=== PATIENT | male | born 1950 | race Caucasian/White ===

== ENCOUNTER 2020-05-07 05:01 | Observation (INO) ==
--- NOTE | 2020-04-10 11:28 | PAT Medication Instructions ---
Medication Instructions Date of Service April 10, 2020 Home Medications allopurinol 100 mg PO BID atorvastatin 40 mg PO QAM carvedilol 25 mg PO BID celecoxib 200 mg PO QAM losartan 50 mg PO QAM pantoprazole 40 mg PO QAM ASK your surgeon for instructions celecoxib 200 mg PO QAM DO NOT take the morning of surgery losartan 50 mg PO QAM Take morning of surgery With a small sip of water, OTHERWISE NOTHING TO EAT OR DRINK AFTER MIDNIGHT: pantoprazole 40 mg PO QAM carvedilol 25 mg PO BID atorvastatin 40 mg PO QAM allopurinol 100 mg PO BID Take evening before surgery allopurinol 100 mg PO BID carvedilol 25 mg PO BID Other Notes If you have any questions please call us at [phone] or [phone] or [phone] or [phone]
--- NOTE | 2020-04-11 08:25 | Anesthesiology Consultation ---
Date of Service April 11, 2020 Assessment & Plan (1) Encounter for pre-operative examination: COVID Status: As of 04/11 assessment, patient denies travel to endemic area, known exposure/sick contacts, or symptoms of COVID19. Patient instructed that they and their household members must follow strict social distancing guidelines, wear a mask in public and avoid travel for 14 days prior to surgery. Preoperative COVID19 testing to be completed prior to surgery per surgeon's arrangements (pt reports 05/02). Patient made aware to self-isolate as much as possible between COVID testing and surgery. S/P L TKA @ [facility] 07/16/15 = SAB x 3 attempts at midline L3-L4, and L4-L5 x 1 paramedian. (h/o spinal fusion) Chart Review Chart Review: Acceptable Risk for Surgery (pending surgeon ordered PCP clearance 04/15) and Patient seen in Pre Admission Testing Teaching & Discussion Instructed NPO after midnight before surgery, except medications with 15 cc of water. Medication instructions provided according to the PAT guidelines. History Surgery Operation Date: 05/07/20 10:20 Proposed Procedures p Right Total Knee Arthroplasty - Tavo Grayson MD Height/Weight Height: 5 ft 10.5 in Weight: 81.4 kg Allergies Allergy/AdvReac Type Severity Reaction Status Date / Time No Known Allergies Allergy Mild Unverified 04/07/20 10:35 Medications Home Medications Medication Instructions Recorded Confirmed Last Taken allopurinol 100 mg PO BID 04/07/20 04/07/20 Unknown atorvastatin 40 mg PO QAM 04/07/20 04/07/20 Unknown carvedilol 25 mg PO BID 04/07/20 04/07/20 Unknown celecoxib 200 mg PO QAM 04/07/20 04/07/20 Unknown losartan 50 mg PO QAM 04/07/20 04/07/20 Unknown pantoprazole 40 mg PO QAM 04/07/20 04/07/20 Unknown Past Medical History Medical History (Updated 04/14/20 @ 09:55 by Philippe Rich) Anemia 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 No medication was ever initiated, sinus mario at PAT Hyperlipidemia Hypertension Osteoarthritis Peptic ulcer disease 2017> RESOLVED Exercise / Class Metabolic Activity II 4-5 Yardwork/Stairs/Walk up hill Past Surgical History Surgical History Fusion of spine LUMBAR History of colonoscopy History of tooth extraction History of total knee replacement LEFT History of total shoulder replacement RIGHT Past Anesthesia History No Hx of Anesthesia Complications and No Family Hx of Anesthesia Complications History of PONV No Hx of PONV and No Hx of Motion Sickness Social History Smoking Status: Former smoker tobacco type: smokeless tobacco Do You Dip or Chew Tobacco: Yes (1 CAN PER 4 DAYS, ADVISED NONE AM DOS) Smoking End Date: 25 YRS AGO Hx Alcohol Use: Yes Alcohol type: beer alcohol intake frequency: 3 or more drinks per day Alcohol Intake Frequency Comment: 3-4 BEERS PER DAY Hx Substance Use: No substance use type: does not use Review of Systems Pt denies any recent chest pain, shortness of breath, palpitations, cough, fever, URI, or uncontrolled acid reflux. Physical Exam Vital Signs BP: 156/90 P: 63bpm SPO2: 97% RA T: 98.1 F R: 16 ENMT Mouth: + dental bridge (upper front) and + chipped teeth (one upper incisor); no loose teeth Thyromental Distance: < 3.5 Finger Breadths (3) Mallampati Class: III Neck normal visual inspection and + facial hair (very short mc and mustache); neck extension not limited Respiratory normal respiratory effort Auscultation: lungs clear to auscultation bilaterally Cardiovascular Rate/Rhythm: regular rhythm and + bradycardic Heart Sounds: no murmur Vessels: no carotid bruit Testing Laboratory Results 04/11/20 08:37 04/11/20 08:37 PT 11.4 Seconds (9.0-12.0) 04/11/20 08:37 INR 1.1 (0.9-1.1) 04/11/20 08:37 APTT 27.7 Seconds (21.0-31.0) 04/11/20 08:37 Hemoglobin A1c 5.3 % (4.5-5.6) 04/11/20 08:37 Urine Color Yellow 04/11/20 08:37 Urine Appearance Clear (Clear) 04/11/20 08:37 Urine pH 5.5 (4.5-7.5) 04/11/20 08:37 Ur Specific [place] 1.013 (1.000-1.030) 04/11/20 08:37 Urine Protein Negative (Negative) 04/11/20 08:37 Urine Glucose (UA) Negative (Negative) 04/11/20 08:37 Urine Ketones Negative (Negative) 04/11/20 08:37 Urine Nitrite Negative (Negative) 04/11/20 08:37 Ur Leukocyte Esterase Negative (Negative) 04/11/20 08:37 Blood Type O Negative 04/11/20 08:37 Antibody Screen NEGATIVE 04/11/20 08:37 Electrocardiogram Date: 04/11/20 Findings: + SB @ (56bpm) Chest X-Ray Date: 04/11/20 Findings: + NAD
--- NOTE | 2020-04-11 09:13 | XRay Report ---
TWO VIEW CHEST CLINICAL HISTORY: Preoperative examination. FINDINGS: PA and lateral chest radiographs are compared to study dated 01/03/2015. The cardiomediastina l silhouette is unremarkable. There is bibasilar scarring/atelectasis. No airspace consolidation or p leural effusion is identified. There is no pneumothorax. The skeletal structures are osteopenic. The bony thorax appears intact. A right shoulder arthroplasty is in place. Fusion hardware is noted at th e thoracolumbar junction. Compression deformities are noted in the lower spine. IMPRESSION: No active disease in the chest. ACT 112: Negative or not required by law. Electronically signed by: Hermilo Keene M.D. 04/11/2020 9:12 AM
[2020-04-11 11:50] LABS: Basophils # (auto) 0.04 K/uL (0-0.2); Basophils % (auto) 0.7 %; Eosinophils # (auto) 0.59 K/uL (0-0.5); Eosinophils % (auto) 10.5 %; Hematocrit (blood only) 47.2 % (42-52); Hemoglobin 15.8 g/dL (14.0-18.0); Immature Granulocytes # (auto) 0.02 K/uL (0.00-0.02); Immature Granulocytes % (auto) 0.4 %; Lymphocytes # (auto) 1.17 K/uL (1.2-3.4); Lymphocytes % (auto) 20.9 %; Mean Corpuscular Hemoglobin 30.5 pg (25-34); Mean Corpuscular Hgb Conc 33.5 g/dL (32-36); Mean Corpuscular Volume 91.1 fL (80-100); Mean Platelet Volume 11.6 fL (7.4-10.4); Monocytes # (auto) 0.81 K/uL (0.11-0.59); Monocytes % (auto) 14.4 %; Neutrophils # (auto) 2.98 K/uL (1.4-6.5); Neutrophils % (auto) 53.1 %; Platelet Count 176 K/uL (130-400); RDW Coefficient of Variation 13.8 % (11.5-14.5); RDW Standard Deviation 45.8 fL (36.4-46.3); Red Blood Count 5.18 M/uL (4.7-6.1); White Blood Count 5.61 K/uL (4.8-10.8)
[2020-04-11 11:59] LABS: Albumin Level 3.6 gm/dl (3.4-5.0); BUN Creatinine Ratio 22.3 (10-20); Calcium 8.9 mg/dl (8.5-10.1); Creatinine Clr Calc Pharmacy 75.3 ml/min; Est GFR (African American) 94.7; Est GFR (Non-African American) 81.7; Potassium 4.5 mmol/L (3.5-5.1)
[2020-04-11 12:04] LABS: INR 1.1 (0.9-1.1); Partial Thromboplastin Time 27.7 Seconds (21.0-31.0); Prothrombin Time 11.4 Seconds (9.0-12.0)
[2020-04-11 12:25] LABS: Estimated Average Glucose 105 mg/dl; Hemoglobin A1C 5.3 % (4.5-5.6)
--- NOTE | 2020-04-11 13:29 | Electrocardiogram Report ---
Test Reason : Blood Pressure : / mmHG Vent. Rate : 056 BPM Atrial Rate : 056 BPM P-R Int : 166 ms QRS Dur : 092 ms QT Int : 424 ms P-R-T Axes : 051 028 038 degrees QTc Int : 409 ms Sinus bradycardia Otherwise normal ECG When compared with ECG of 12-JUL-2016 06:18, QT has shortened Confirmed by Antoine Blood ([id number]) on 04/11/2020 1:28:54 PM Referred By: Tavo Grayson Confirmed By:Chandler Blood
[2020-04-11 14:28] LABS: Appearance Urine Clear (Clear); Bilirubin Urine Negative (Negative); Blood Urine Negative (Negative); Color Urine Yellow; Glucose Urine UA Negative (Negative); Ketones Urine Negative (Negative); Leukocyte Esterase Urine Negative (Negative); Nitrite Urine Negative (Negative); Protein Urine Negative (Negative); Specific Gravity Urine 1.013 (1.000-1.030); Urobilinogen Urine Negative (Negative); pH Urine 5.5 (4.5-7.5)
--- NOTE | 2020-05-06 22:43 | History and Physical Report ---
DATE OF ADMISSION: 05/07/2020 HISTORY OF PRESENT ILLNESS: This is a 70-year-old male patient of Dr. Grayson'usman complaining of chronic right knee pain, longstanding, now progressively getting worse. The patient has failed conservative treatment including intra-articular injections. The patient has increased pain with weightbearing activities and his pain does interfere with his activities of daily living. The patient has been diagnosed with end-stage osteoarthritis per clinical and radiographic exams and wishes to proceed with a right total knee arthroplasty. PAST MEDICAL HISTORY: Hypertension, hypercholesterolemia, osteoarthritis, spinal stenosis. SOCIAL HISTORY: Nonsmoker, occasional drinker. SURGICAL HISTORY: Back surgery, shoulder surgery x2. FAMILY HISTORY: Noncontributory. REVIEW OF SYSTEMS: Chronic right knee pain and instability. Otherwise, denies any shortness of breath, chest pain, nausea, vomiting or any other joint complaints. MEDICATIONS: 1. Celebrex 200 mg daily. 2. Zoster recombinant adjuvant 50 mcg every 3-4 months. 3. Allopurinol 100 mg twice daily. 4. Atorvastatin 40 mg daily. 5. Carvedilol 25 mg twice daily. 6. Losartan 50 mg daily. 7. Pantoprazole 40 mg daily. ALLERGIES: No known drug allergies. PHYSICAL EXAMINATION: GENERAL: Well-developed, well-nourished 70-year-old male, in no acute distress. He is alert and oriented x3 and pleasant. HEENT: Normocephalic, atraumatic. Extraocular motions are intact. Pupils are equal and reactive to light. HEART: Regular rate and rhythm. No murmurs. LUNGS: Clear. ABDOMEN: Soft, nontender, bowel sounds present. EXTREMITIES: Right lower extremity limited range of motion of 0-130, valgus deformity, lateral joint line tenderness. Positive effusion, positive crepitation. 4/5 strength with pain. Neurologically and neurovascularly, he is intact in the right lower extremity. DIAGNOSES: Right knee end-stage osteoarthritis, hypertension, hypercholesterolemia, osteoarthritis, spinal stenosis. PLAN: The patient was advised of his diagnosis. Indications, risks, benefits, postop course have all been reviewed. The patient wished to proceed with a right total knee arthroplasty. Necessary consent forms, preoperative testing and clearances will be obtained.
[2020-05-07] MEDS ORDERED: FAMOTIDINE 20 MG TAB PO SCH (06:00)
[2020-05-07] MEDS ORDERED: CeleBREX 200 MG CAP PO SCH (06:00)
[2020-05-07] MEDS ORDERED: ROPIVACAINE 0.5% HCL/PF 150 MG, BUPIVACAINE 0.5% MPF 30 ML, EPINEPHrine 30MG/30ML (OR U... INSTIL SCH (06:00)
[2020-05-07] MEDS ORDERED: ACETAMINOPHEN 500 MG TAB PO SCH ×2 (06:00→14:00)
[2020-05-07] MEDS ORDERED: TRANEXAMIC ACID 1,000 MG **IV Intra-op IV SCH (06:00)
[2020-05-07] MEDS ORDERED: LR 500ML BOLUS, THEN 15ML/HR IV SCH (06:00)
[2020-05-07] MEDS ORDERED: METOCLOPRAMIDE HCL 10 MG TABLET PO SCH (06:00)
[2020-05-07] MEDS ORDERED: TRANEXAMIC ACID 1,000 MG **IV Pre-op IV SCH (06:00)
[2020-05-07] MEDS ORDERED: CEFAZOLIN 2000MG 2,000 MG/15 ML SYR IV SCH (06:00)
[2020-05-07] MEDS ORDERED: GABAPENTIN 300 MG CAP PO SCH (06:00)
[2020-05-07] MEDS ORDERED: dexAMETHasone 4 MG TAB PO SCH (06:00)
[2020-05-07] MEDS ORDERED: EPINEPHrine INJ 1 MG/ML AMP ONE (06:23)
[2020-05-07] MEDS ORDERED: ROPIVACAINE 0.5% 5 MG/ML 30 ML VIAL ONE (06:23)
[2020-05-07] MEDS ORDERED: BUPIVACAINE 0.5 % 5 MG/1 ML PF 10ML VIAL ONE (06:23)
[2020-05-07] MEDS ORDERED: MIDAZOLAM HCL 1 MG/ML 2ML VIAL ONE ×2 (06:35)
[2020-05-07] MEDS ORDERED: LIDOCAINE HCL 2% 2 ML VIAL/AMP(20MG/ML) INFIL ONE (06:35)
[2020-05-07] MEDS ORDERED: PROPOFOL IV EMULSION 10 MG/ML 20 ML VIAL IV ONE ×4 (06:35→08:41)
--- NOTE | 2020-05-07 06:56 | History & Physical Bridge Note ---
Date of Service May 07, 2020 History & Physical Bridge Note I have examined the patient, reviewed the History & Physical and in the interval since the performance of the History & Physical I have noted the following changes of clinical significance: no changes noted
[2020-05-07] MEDS ORDERED: BACITRACIN INJ 50,000 UNIT VIAL ONE (07:13)
[2020-05-07] MEDS ORDERED: ORTHO JOINT ANESTHETIC ONE (07:13)
[2020-05-07] MEDS ORDERED: ATROPINE SULFATE 0.1 MG/ML 10ML SYR IV PRN (07:41)
[2020-05-07] MEDS ORDERED: ePHEDrine sulfate 50 MG/ML AMP IV PRN (07:41)
[2020-05-07] MEDS ORDERED: ePHEDrine sulfate 50 MG/ML AMP ONE (07:49)
[2020-05-07] MEDS ORDERED: PHENYLEPHRINE HCL 10 MG/ML VIAL ONE (07:49)
[2020-05-07] MEDS ORDERED: GLYCOPYRROLATE 0.2 MG/ML VIAL ONE (07:58)
--- NOTE | 2020-05-07 09:40 | Post Operative Brief Note ---
Immediate Post Op Note v1 Date of Surgery May 07, 2020 Pre & Post Diagnosis Operation Date: 05/07/20 07:15 Pre-Op Diagnosis: Unilateral Primary Osteoarthritis, Right Knee Post-Op Diagnosis: Unilateral Primary Osteoarthritis, Right Knee I identified the patient and participated in the time-out.: Yes Procedure Operation Date: 05/07/20 07:15 Actual Procedures p Right Total Knee Arthroplasty(Right) - Tavo Grayson MD Surgeon Tavo Grayson MD Building Maintenance Engineer EDMUNDO Portillo Estimated Blood Loss 5 Findings Consistent with Post-Op Diagnosis Specimens Bone cuts Drains Hemovac Drain (dual trocar) Anesthesia Type MAC Spinal Regional Complications none Disposition Accompanied Patient To Recovery: No Disposition: Recovery Room Overlapping Procedure I was immediately available: during the entire case.
--- NOTE | 2020-05-07 10:13 | Operative Report ---
Post Operative Report Pre & Post Diagnosis Operation Date: 05/07/20 07:15 Pre-Op Diagnosis: Unilateral Primary Osteoarthritis, Right Knee Post-Op Diagnosis: Unilateral Primary Osteoarthritis, Right Knee I identified the patient and participated in the time-out.: Yes Procedure Operation Date: 05/07/20 07:15 Actual Procedures p Right Total Knee Arthroplasty(Right), lateral release- Tavo Grayson MD Surgeon Tavo Grayson MD Audio Visual Secretary EDMUNDO Portillo Estimated Blood Loss 5 Findings Consistent with Post-Op Diagnosis Specimens Bone cuts Drains 2 Hemovac Anesthesia Type MAC Spinal Regional Complications none Disposition Accompanied Patient To Recovery: No Disposition: Recovery Room Indications 68-year-old male with severe bilateral knee osteoarthritis. Patient has successful left knee replacement. Right knee is [id number] lateral compartment with significant bone loss and valgus knee with chronic flexion contracture. Description of Procedure Patient taken to the operating room the size under spinal MAC regional anesthesia. Patient was placed supine on the operating table. A pneumatic t ourniquet was placed about the right upper thigh. The right lower extremity was prepped and draped in sterile fashion. Knee exam demonstrated large knee effusion flexion contracture of 20 degrees flexion to 120 degrees instability with varus valgus stress due to significant bone loss lateral compartment. The leg was elevated exsanguinated with an Esmarch bandage and pneumatic tourniquet was raised to 300 millimeters of mercury. Skin incised sharply in longitudinal fashion. Subcutaneous flaps elevated. Incision was made through the medial retinaculum extending up in the mid third of the quadriceps tendon and down to the medial tibial tubercle. Intra-articular findings demonstrated tricompartmental osteoarthritis [id number] medial and lateral compartments and advanced patellofemoral osteoarthritis valgus knee notch stenosis with bone completely covering the notch chronic ACL tear chronic lateral meniscus tear with subluxation laterally and chronic synovitis with large effusion that was evacuated. There was a hypoplastic lateral femoral condyle and significant bone loss of the posterior lateral tibia. There was chronic thickened synovitis. The [employer] triBlueInGreen, [employer]on total knee arthroplasty system was used. To expose the knee the infrapatellar fat pad was resected. A curved osteotome was used to remove the bone spurs in the notch to expose the PCL. The meniscal remnants and posterior cruciate ligaments were resected. A large loose body was excised from the anterior tibia. the anterior fat pad over the femur in the area of the anterior flange of the femoral component was resected. Lateral synovial bands release. Electrocautery synovectomy was performed removing all the thickened inflamed synovial tissue and suprapatellar pouch in the gutters. The femur was exposed. An intramedullary drill hole was made into the canal. A guide ally was placed. Distal femoral cutting guide was adjusted to resect a 6 degree valgus cut with 10 millimeters distal femur resected initially. I did take off additional +2 mm due to the flexion contracture. The knee was extended and a subperiosteal peel lateral release was performed around the patella. Patella width was measured and width was reproduced using a freehand cut technique and a 33 x 9 symmetrical patella component. The 3 drill holes were made and the excess lateral facet was beveled off to prevent any impingement. Attention was taken back to the femur which was exposed with retractors and the femoral sizing guide was pinned in position. The drill holes were placed in 3 of external rotation to match epicondylar axis. Femur sized for a 6 PS component. The 4-in-1 cutting block was placed and then the anterior posterior and chamfer cuts are made. The tibia was then subluxed. The external tibial cutting guide was just to make a perpendicular cut to the long axis of the tibia. Due to the marked bone loss I cannot cut below the level of most deficient posterior lateral tibia so we cut just above that level leaving a small dished out area of of eburnated bone that was curetted and drill holes were made into that area to place bone cement during fixation.. A lamina mysql database administrator was used and the flexion extension gaps were balanced. All posterior osteophytes removed. All meniscal remnants were resected. The tibia exposed and the trial tibial component size 6 was externally rotated in line with the tibial tubercle and pinned in position. The drills and punch for stem were used. The notch cutting device was centered appropriately and the femoral notch cut was made. The femoral trial was inserted. Trial tibial inserts were placed and size 6 x 11 mm TS gave balanced ligaments through flexion and extension. Patella tracking was assessed. The patella tracked laterally so I did a lateral release leaving the synovium intact and the patella tracked centrally.. The trial components were then removed and the orthomix anesthetic cocktail was injected per protocol. The knee was then copiously irrigated with pulsatile lavage antibiotic solution. Final components were then cemented with Simplex cement. Final components were [place] triathlon 6 right posterior stabilized femoral component with fixation pegs, 6 universal baseplate with a 12 x 100 mm cemented stem, 6 bilaminar TS polyethylene insert and a S 33 x 9 patella. While the cement cured the Betadine soak was used per p rotocol. After cement cured further pulsatile lavage irrigation performed and 2 Hemovac drains were brought out laterally. The quadriceps tendon and medial retinaculum were closed with figure of 8 #1 Vicryl sutures. The knee was taken through full range of motion and the repair was secure. The knee is able to be extended to full extension with some passive extension just shy of full extension in the resting position and had flexion 130 degrees. The subcutaneous tissues were closed with 2-0 Vicryl sutures. Skin was closed with leatha. Sterile dressings were applied. Patient procedure well. Feng WYATT was my physician railway yard assistant who assisted in patient positioning prepping and draping,leg positioning ,soft tissue retraction and instrument management and participated in the closing and will participate in postoperative care of the patient. The patient tolerated the procedure well. I attest to the content of the Intraoperative Record and any orders documented therein. Any exceptions are noted below.
--- NOTE | 2020-05-07 10:28 | Anesthesiology Progress Note ---
Date of Service May 07, 2020 Anesthesia Post Procedure Vital Signs Vital Signs: Temp Pulse Pulse Resp BP Pulse Ox 05/07/20 10:15 36.5 C 69 14 106/64 94 05/07/20 10:05 72 16 96/72 L 89 L 05/07/20 09:55 76 17 106/73 91 05/07/20 09:47 36.2 C L 80 16 103/70 90 05/07/20 05:55 36.4 C L 70 18 101/68 94 Transfer of Care Handoff Completed per policy Notes Mental Status: alert / awake / arousable Patient Amnestic to Procedure: Yes Nausea / Vomiting: adequately controlled Pain: adequately controlled Airway Patency, RR, SpO2: stable & adequate BP & HR: stable & adequate Hydration State: stable & adequate Neuraxial Anesthesia: was administered and sensory block is resolving Anesthetic Complications: no major complications apparent
--- NOTE | 2020-05-07 10:52 | XRay Report ---
TWO VIEWS RIGHT KNEE CLINICAL HISTORY: Postoperative examination. FINDINGS: AP and crosstable lateral portable views of the right knee are obtained. A right knee arthr oplasty is in near anatomic alignment. There has been undersurface remodeling of the patella. No acut e fracture is seen. There are expected postoperative changes around the knee including skin clips, a surgical drain, soft tissue edema, and subcutaneous gas. IMPRESSION: Expected postoperative changes status post right knee arthroplasty. No acute fracture is seen. ACT 112: Negative or not required by law. Electronically signed by: Hermilo Keene M.D. 05/07/2020 10:51 AM
[2020-05-07] MEDS ORDERED: ONDANSETRON INJ 2 MG/ML 2 ML VIAL IV PRN (10:57)
[2020-05-07] MEDS ORDERED: OXYCODONE HCL IR 5 MG TAB (IMMEDIATE RELEASE) PO PRN (10:57)
[2020-05-07] MEDS ORDERED: MAGNESIUM HYDROXIDE SUSP 30 ML UDC PO PRN (10:57)
[2020-05-07] MEDS ORDERED: bisacodyL 10 MG SUPP PR PRN (10:57)
[2020-05-07] MEDS ORDERED: NALOXONE HCL 0.4 MG/1 ML VIAL/CARP IV PRN (10:57)
[2020-05-07] MEDS ORDERED: HYDROmorphone INJ 0.5 MG/0.5 ML SYR IV PRN (10:57)
[2020-05-07] MEDS: SODIUM CHLORIDE 0.9% 1000ML 1,000 ML IV SCH ×2 (11:11→21:13)
--- NOTE | 2020-05-07 11:33 | Consultation ---
Date of Consultation May 07, 2020 Assessment & Plan (1) Status post total right knee replacement: Post op day# 0 S/P Right TKA by Dr Grayson EBL#5ml -pain management per ortho -wound management per ortho -PT/OT as appropriate -DVT prophylaxis per ortho -incentive spirometry -monitor H&H for acute blood loss anemia; Pre-op Hgb: 15.8 (2) Hypertension: Stable Pt reports took carvedilol and losartan this morning -Continue carvedilol, losartan with holding parameters (3) Alcohol use: Denies h/o ETOH withdrawal or DT's -Monitor for ETOH withdrawal symptoms -Ativan prn (4) Hyperlipidemia: -Continue atorvastatin (5) Gout: -Continue allopurinol (6) GERD (gastroesophageal reflux disease): -Continue PPI DVT Prophylaxis -SCDs Disposition per primary service Follows with Dr Zhu for routine care Pt was seen and care coordinated with Dr Spencer. See addendum Thank you for this consultation. We will follow the patient with you during their hospital stay. You can reach a member of the [facility]ist Team 28/03 via pager @ [phone]. Supervising Physician Co-Signing Physician Notes I, Dr. Woo Spencer, have seen and examined the patient Sid Walker with physician assistant financial accountant and would like to comment that On Physical exam General: no acute distress HEENT: extraoccular movements intact Heart: regular heart rate Lungs: clear to auscultation bilaterally Abdomen: soft, nontender, positive bowel sounds Extremities: with wound vac on right knee Neuro: no focal neurological deficits Assessment and plan -This is a patient who had Right Total Knee Arthroplasty with lateral release by orthopedic service Dr. Grayson on 05/07/2020 and hospitalist medicine being asked for consultation for POST-OP Management -Patient to have IV fluids after the surgery and that order is active also post- operative antibiotics of cefazolin -Patient has history of hypertension and is on home medication of carvedilol 25 mg twice a day, and losartan 50 mg daily continue -continue home dose atorvastatin 40 mg daily -patient has pain medications as per orthopedics. Hospitalist edit orthopedics order of acetaminophen 1000 mg q8 hours as scheduled medication as 650 mg every 8 hours for no more than 3 days to minimize risks of liver toxicity -discussed with patient about home alcohol use. He denies history of alcohol withdrawal, He does not have alcohol withdrawal symptoms currently. He reports his last drink of alcohol was on 05/06/2020 -patient is on DVT prophylaxis as per orthopedics as aspirin 81 mg twice a day at this time -labs to be drawn on 05/08/2020 AM -agree with other assessment and plans as per physician assistant financial accountant -My colleague hospitalist Dr. Rucker will be following the patient starting on 05/08/2020 History of Present Illness Requesting Physician: Dr Grayson Reason for Consultation: Post op medical management Attending Physician: Tavo Grayson MD History of Present Illness Pt is 70 y/o M with PMH HTN, dyslipidemia, gout, tobacco use seen in medical consultation s/p right TKA today by Dr. Grayson. Post op pt still with extremity numbness. Denies any nausea, vomiting, chest pain, shortness of breath, headache, dizziness. Patient reports took all of his home medicines this morning except for Celebrex. Denies fever/chills, diaphoresis, neck pain, palpitations, cough, sore throat, abdominal pain, extremity edema, rashes, urinary symptoms. Allergies Allergy/AdvReac Type Severity Reaction Status Date / Time No Known Allergies Allergy Mild Unverified 04/07/20 10:35 Home Medications Home Medications Medication Instructions Recorded Confirmed Type allopurinol 100 mg PO BID 04/07/20 04/07/20 History atorvastatin 40 mg PO QAM 04/07/20 05/07/20 History carvedilol 25 mg PO BID 04/07/20 04/07/20 History celecoxib 200 mg PO QAM 04/07/20 05/07/20 History losartan 50 mg PO QAM 04/07/20 04/07/20 History pantoprazole 40 mg PO QAM 04/07/20 04/07/20 History Patient History Medical History (Updated 05/07/20 @ 11:33 by Teresa Kumar PA-C) Anemia 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 No medication was ever initiated, sinus mario at PAT Hyperlipidemia Hypertension Osteoarthritis Peptic ulcer disease 2016> RESOLVED Surgical History (Updated 05/07/20 @ 11:33 by Teresa Kumar PA-C) Fusion of spine LUMBAR History of colonoscopy History of tooth extraction History of total knee replacement LEFT History of total shoulder replacement RIGHT Social History (Updated 05/07/20 @ 12:32 by Teresa Kumar PA-C) Smoking Status: Former smoker Smoking End Date: 25 YRS AGO; Second Hand Exposure: No; Do You Dip or Chew Tobacco: Yes (1 CAN PER 4 DAYS, ADVISED NONE AM DOS); Tobacco Cessation Education Requested by Patient: No Hx Alcohol Use: Yes (4/day) Alcohol type: beer Hx Substance Use: No Preferred Language: Malay Communication Ability: Effective Plasterer Helper Required: No Beliefs That Will Affect Care: None marital status: Current Living Situation: Spouse Other Information That Helps Us Care for You: No Feels Safe at Home: Yes Safety Concerns: Feels Safe At This Time Review of Systems Review of Systems: All systems reviewed & are unremarkable except as noted in HPI & below Physical Exam Physical Exam: General: no distress, WDWN Head: normocephalic, atraumatic Eyes: conjunctiva non-injected, anicteric ENT: normal inspection external ears, nose, mucous membranes moist Neck: supple, trachea midline Lungs: clear, no respiratory distress, no wheezing/rhonchi/rales CV: RRR, no murmur, no pretibial edema Abd: normal BS, soft, non-tender Ext: Right knee and leg with surgical dressing and SABRA wrap in place. distal pulses palpable, pt with decreased sensation and no ROM legs yet (had spinal anesthesia) Neuro: A&O x 3, no focal deficits noted, normal affect Skin: warm, dry Results & Data ([facility]) Vital Signs (Past 12 Hours) Vital Signs Temp Pulse Pulse Resp BP BP Pulse Ox 05/07/20 11:07 75 16 117/85 93 05/07/20 10:45 36.4 C L 73 16 122/83 96 05/07/20 10:35 36.5 C 67 15 123/81 96 05/07/20 10:25 36.5 C 68 16 114/81 96 05/07/20 10:15 36.5 C 69 14 106/64 94 05/07/20 10:05 72 16 96/72 L 89 L 05/07/20 09:55 76 17 106/73 91 09/02/20 09:47 36.2 C L 80 16 103/70 90 05/07/20 05:55 36.4 C L 70 18 101/68 94
[2020-05-07] MEDS ORDERED: LORazepam 1 MG/2 ML VIAL IV PRN (11:35)
[2020-05-07] MEDS: ACETAMINOPHEN 325 MG TAB PO SCH ×2 (12:59→21:07)
[2020-05-07] MEDS: CEFAZOLIN 1000MG 1,000 MG/7.5 ML SYR IV SCH ×2 (14:20→22:01)
[2020-05-07] MEDS: DOCUSATE SODIUM 100 MG CAP PO SCH (21:08)
[2020-05-07] MEDS: CeleBREX 200 MG CAP PO SCH (21:08)
[2020-05-07] MEDS: allopurinoL 100 MG TAB PO SCH (21:09)
[2020-05-07] MEDS: ASPIRIN 81 MG ECTAB PO SCH (21:09)
[2020-05-07] MEDS: SENNA 8.6 MG TAB PO SCH (21:09)
[2020-05-07] MEDS: carvediloL 25 MG TAB PO SCH (21:10)
[2020-05-08] MEDS: ACETAMINOPHEN 325 MG TAB PO SCH ×3 (03:53→20:55)
[2020-05-08 06:18] LABS: Hematocrit (blood only) 36.4 % (42-52); Hemoglobin 11.8 g/dL (14.0-18.0); Mean Corpuscular Hemoglobin 29.9 pg (25-34); Mean Corpuscular Hgb Conc 32.4 g/dL (32-36); Mean Corpuscular Volume 92.2 fL (80-100); Mean Platelet Volume 11.1 fL (7.4-10.4); Platelet Count 181 K/uL (130-400); RDW Coefficient of Variation 13.7 % (11.5-14.5); RDW Standard Deviation 46.1 fL (36.4-46.3); Red Blood Count 3.95 M/uL (4.7-6.1); White Blood Count 14.04 K/uL (4.8-10.8)
[2020-05-08 06:51] LABS: BUN Creatinine Ratio 23.1 (10-20); Calcium 7.9 mg/dl (8.5-10.1); Creatinine Clr Calc Pharmacy 67.3 ml/min; Est GFR (African American) 82.7; Est GFR (Non-African American) 71.4; Magnesium 1.7 mg/dl (1.8-2.4); Potassium 3.9 mmol/L (3.5-5.1)
[2020-05-08 06:52] LABS: Phosphorus 3.1 mg/dl (2.5-4.9)
--- NOTE | 2020-05-08 08:20 | Orthopedic Progress Note ---
Date of Service May 08, 2020 Assessment & Plan (1) Osteoarthritis of right knee: Postop day 1 status post right total knee arthroplasty. PT/OT protocols. Weightbearing as tolerated. DVT prophylaxis with aspirin p.o. twice daily, SCDs. Continue current pain regimen. Leukocytosis. Most likely due to preoperative steroids and surgical stress. Patient currently asymptomatic. DC planning-patient planning for outpatient PT upon discharge. Admission and Anticipated Discharge Date Admission Date: May 07, 2020 Subjective Postop day 1 Patient currently sitting up in bed doing his bedside exercises. He currently is doing his heel props. No complaints this morning. Pain is controlled. Denies shortness of breath, chest pain, lightheadedness. Physical Exam Physical Exam: Dressings are clean, dry, and intact. Calves are soft nontender. Neurovascular is intact. Toes are mobile. He has good dorsiflexion plantarflexion of the right foot. HV 200ml's from the previous shift. Results & Data ([facility]) Vital Signs (Past 12 Hours) Vital Signs Temp Pulse Resp BP BP Pulse Ox 05/08/20 07:36 36.5 C 73 16 102/63 92 05/08/20 03:40 36.3 C L 86 16 115/71 91 05/07/20 23:49 36.6 C 84 16 95/62 L 93 Laboratory Results Laboratory Results WBC 14.04 K/uL (4.8-10.8) H 05/08/20 05:33 RBC 3.95 M/uL (4.7-6.1) L 05/08/20 05:33 Hgb 11.8 g/dL (14.0-18.0) L 05/08/20 05:33 Hct 36.4 % (42-52) L 05/08/20 05:33 MCV 92.2 fL (80-100) 05/08/20 05:33 MCH 29.9 pg (25-34) 05/08/20 05:33 MCHC 32.4 g/dL (32-36) 05/08/20 05:33 RDW Std Deviation 46.1 fL (36.4-46.3) 05/08/20 05:33 RDW Coeff of Emeterio 13.7 % (11.5-14.5) 05/08/20 05:33 Plt Count 181 K/uL (130-400) 05/08/20 05:33 MPV 11.1 fL (7.4-10.4) H 05/08/20 05:33 Immature Gran % (Auto) 0.4 % 04/11/20 08:37 Neut % (Auto) 53.1 % 04/11/20 08:37 Lymph % (Auto) 20.9 % 04/11/20 08:37 [place] % (Auto) 14.4 % 04/11/20 08:37 Eos % (Auto) 10.5 % 04/11/20 08:37 Baso % (Auto) 0.7 % 04/11/20 08:37 Neut # (Auto) 2.98 K/uL (1.4-6.5) 04/11/20 08:37 Lymph # (Auto) 1.17 K/uL (1.2-3.4) L 04/11/20 08:37 [place] # (Auto) 0.81 K/uL (0.11-0.59) H 04/11/20 08:37 Eos # (Auto) 0.59 K/uL (0-0.5) H 04/11/20 08:37 Baso # (Auto) 0.04 K/uL (0-0.2) 04/11/20 08:37 Immature Gran # (Auto) 0.02 K/uL (0.00-0.02) 04/11/20 08:37 PT 11.4 Seconds (9.0-12.0) 04/11/20 08:37 INR 1.1 (0.9-1.1) 04/11/20 08:37 APTT 27.7 Seconds (21.0-31.0) 04/11/20 08:37 PTT Ratio 1.0 04/11/20 08:37 Sodium 144 mmol/L (136-145) 05/08/20 05:33 Potassium 3.9 mmol/L (3.5-5.1) 05/08/20 05:33 Chloride 113 mmol/L (98-107) H 05/08/20 05:33 Carbon Dioxide 22 mmol/L (21-32) 05/08/20 05:33 Anion Gap 9.0 (3-11) 05/08/20 05:33 BUN 24 mg/dl (7-18) H 05/08/20 05:33 Creatinine 1.04 mg/dl (0.6-1.4) 05/08/20 05:33 Est Cr Clr Drug Dosing 67.3 ml/min 05/08/20 05:33 Est GFR ( Amer) 82.7 05/08/20 05:33 Est GFR (Non-Af Amer) 71.4 05/08/20 05:33 BUN/Creatinine Ratio 23.1 (10-20) H 05/08/20 05:33 Glucose 122 mg/dl (70-99) H 05/08/20 05:33 Estimat Average Glucose 105 mg/dl 04/11/20 08:37 Hemoglobin A1c 5.3 % (4.5-5.6) 04/11/20 08:37 Calcium 7.9 mg/dl (8.5-10.1) L 05/08/20 05:33 Phosphorus 3.1 mg/dl (2.5-4.9) 05/08/20 05:33 Magnesium 1.7 mg/dl (1.8-2.4) L 05/08/20 05:33 Albumin 3.6 gm/dl (3.4-5.0) 04/11/20 08:37 Urine Color Yellow 04/11/20 08:37 Urine Appearance Clear (Clear) 04/11/20 08:37 Urine pH 5.5 (4.5-7.5) 04/11/20 08:37 Ur Specific [place] 1.013 (1.000-1.030) 04/11/20 08:37 Urine Protein Negative (Negative) 04/11/20 08:37 Urine Glucose (UA) Negative (Negative) 04/11/20 08:37 Urine Ketones Negative (Negative) 04/11/20 08:37 Urine Blood Negative (Negative) 04/11/20 08:37 Urine Nitrite Negative (Negative) 04/11/20 08:37 Urine Bilirubin Negative (Negative) 04/11/20 08:37 Urine Urobilinogen Negative (Negative) 04/11/20 08:37 Ur Leukocyte Esterase Negative (Negative) 04/11/20 08:37 Blood Type O Negative 04/11/20 08:37 Antibody Screen NEGATIVE 04/11/20 08:37
[2020-05-08] MEDS: ATORVASTATIN 40 MG TAB PO SCH (09:21)
[2020-05-08] MEDS: LOSARTAN POTASSIUM 50 MG TAB PO SCH (09:22)
[2020-05-08] MEDS: MULTIVITAMIN TAB PO SCH (09:22)
[2020-05-08] MEDS: PANTOprazole 40 MG TAB PO SCH (09:22)
[2020-05-08] MEDS: DOCUSATE SODIUM 100 MG CAP PO SCH ×2 (09:23→21:00)
[2020-05-08] MEDS: CeleBREX 200 MG CAP PO SCH ×2 (09:23→20:56)
[2020-05-08] MEDS: ASPIRIN 81 MG ECTAB PO SCH ×2 (09:23→20:57)
[2020-05-08] MEDS: allopurinoL 100 MG TAB PO SCH ×2 (09:23→20:56)
[2020-05-08] MEDS: carvediloL 25 MG TAB PO SCH ×2 (09:23→20:57)
--- NOTE | 2020-05-08 09:59 | Hospitalist Progress Note ---
Date of Service May 08, 2020 Assessment & Plan (1) Acute blood loss anemia: (2) Status post total right knee replacement: Post op day# 1 S/P Right TKA by Dr Grayson -pain and wound care management per ortho- discussed dressing change with RN -PT/OT as appropriate -DVT prophylaxis per ortho -incentive spirometry Pre-op Hgb: 15.8. Hgb 11.8 today for a total 4 gm loss -EBL#5ml, significant CECILIA drain output of 1,726 ml to date -Denies lightheadedness, visual changes, CP or SOB. Cautioned about symptoms of orthostasis, monitor BP closely -Fall precautions and orthostatic vitals ordered. Repeat H&H at 1600 this afternoon (3) Hypertension: Stable. Continue carvedilol, losartan with holding parameters (4) Alcohol use: Denies h/o ETOH withdrawal or DT's -Monitor for ETOH withdrawal symptoms -Ativan prn (5) Hyperlipidemia: -Continue atorvastatin (6) Gout: -Continue allopurinol (7) GERD (gastroesophageal reflux disease): -Continue PPI DVT Prophylaxis -SCDs Disposition per primary service Follows with Dr Zhu for routine care Pt was seen and care coordinated with Dr. Rucker. See addendum Thank you for this consultation. We will follow the patient with you during their hospital stay. You can reach a [facility] via pager @ [phone]. Admission and Anticipated Discharge Date Admission Date: May 07, 2020 Supervising Physician Co-Signing Physician Notes Attending addendum: The patient was seen and examined in medical floor He is a status post right total knee arthroplasty Complains pain in the right knee but going on with physical therapy Denies any other significant symptoms On examination Sitting on a chair without any acute distress Hemodynamically stable Chest clear to auscultate bilaterally- Heart-S1-S2, regular Abdomen-benign Extremities-trace edema on the right side His labs and imaging studies reviewed Has acute blood loss anemia and will monitor CBC Agree with assessment and plan as outlined above by VIVIAN C[address]denas Dr Subjective Patient seen and examined in 322-1. Denies surgical site pain. Has not yet participated in PT today. Tolerating diet well, no nausea or vomiting. Denies lightheadedness, visual changes, chest pain or SOB. No abdominal pain. Urinating without issue. Had bowel movement this morning. Review of Systems Review of Systems: At least ten systems reviewed and negative except as noted in the HPI. Physical Exam Physical Exam: General Appearance: WD/WN, vitals as above, NAD, sitting up in bedside chair, pleasant, conversing easily Head: normocephalic, atraumatic Eyes: normal inspection ENT: external ear and nose normal, oropharynx normal Neck: normal visual inspection, trachea midline, no thyromegaly Respiratory: normal respiratory effort, lungs clear to auscultation, no wheeze, rales, rhonchi. No accessory muscle use Cardiovascular: regular rate, rhythm, no murmur, normal peripheral pulses, no BLE edema Abdomen/GI: normal bowel sounds, soft, nontender, no hepatosplenomegaly Extremities/Musculoskeletal: + R knee with surgical dressing and small amount of blood on dressing. No cyanosis or clubbing, extremities motor strength 5/5 Neurologic: PERRL, no dysarthria, CN's II-XI intact bilaterally and moves all extremities Psychiatric: A+Ox3, euthymic affect Skin: no rashes, normal color, warm/dry Results & Data Results & Data ([facility]) Vital Signs (Past 12 Hours) Vital Signs Temp Pulse Resp BP BP Pulse Ox 05/08/20 07:36 36.5 C 73 16 102/63 92 05/08/20 03:40 36.3 C L 86 16 115/71 91 05/07/20 23:49 36.6 C 84 16 95/62 L 93
[2020-05-08 16:19] LABS: Hematocrit (blood only) 36.3 % (42-52); Hemoglobin 12.1 g/dL (14.0-18.0)
--- NOTE | 2020-05-08 18:38 | Urology Consultation ---
Date of Consultation May 08, 2020 Assessment & Plan (1) Urinary retention due to benign prostatic hyperplasia: post op retention after knee replacement straight cath earlier tonight tamsulosin to start now plan for bladder scan q8hrs and straight cath if greater than 400cc PVR if he requires more than 2 straight caths, we will convert to a pablo and plan for d/c home with the catheter and outpt f/u for voiding trial History of Present Illness Attending Physician: Tavo Grayson MD History of Present Illness 70y/o male s/p R TKA today had some leakage of urine this afternoon and was found to have greater than 1000cc on bladder scan straight cath performed feels well now no pain reports voiding dysfunction progressively worsening over the past several years never been on meds previously never been to a urologist in the past Allergies Allergy/AdvReac Type Severity Reaction Status Date / Time No Known Allergies Allergy Mild Unverified 04/07/20 10:35 Home Medications Home Medications Medication Instructions Recorded Confirmed Type allopurinol 100 mg PO BID 04/07/20 04/07/20 History atorvastatin 40 mg PO QAM 04/07/20 05/07/20 History carvedilol 25 mg PO BID 04/07/20 04/07/20 History celecoxib 200 mg PO QAM 04/07/20 05/07/20 History losartan 50 mg PO QAM 04/07/20 04/07/20 History pantoprazole 40 mg PO QAM 04/07/20 04/07/20 History Patient History Medical History Anemia 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 No medication was ever initiated, sinus mario at PAT Hyperlipidemia Hypertension Osteoarthritis Peptic ulcer disease 2016> RESOLVED Surgical History Fusion of spine LUMBAR History of colonoscopy History of tooth extraction History of total knee replacement LEFT History of total shoulder replacement RIGHT Social History Smoking Status: Former smoker Smoking End Date: 25 YRS AGO; Second Hand Exposure: No; Do You Dip or Chew Tobacco: Yes (1 CAN PER 4 DAYS, ADVISED NONE AM DOS); Tobacco Cessation Education Requested by Patient: No Hx Alcohol Use: Yes (4/day) Alcohol type: beer Hx Substance Use: No Preferred Language: Slovenian Communication Ability: Effective Dairy Associate Required: No Beliefs That Will Affect Care: None marital status: Current Living Situation: Spouse Other Information That Helps Us Care for You: No Feels Safe at Home: Yes Safety Concerns: Feels Safe At This Time Review of Systems Review of Systems: All systems reviewed & are unremarkable except as noted in HPI & below Physical Exam Constitutional: well developed and well nourished Neck: neck nontender Respiratory: normal respiratory effort; no respiratory distress and does not use accessory muscles Cardiovascular: Rate/Rhythm: regular rate Vessels: radial pulses present Extremities: no edema Gastrointestinal (Abdomen): Inspection/Auscultation: abdomen normal to inspection Percussion/Palpation: abdomen soft; abdomen nontender and no guarding Musculoskeletal: Head/Neck/Chest: normocephalic and head atraumatic Extremities: extremities normal to inspection Skin: no rashes and no lesions Trauma: no evidence of skin trauma Neurologic: awake; not obtunded Speech / Cognition: normal speech Motor/Sensory: no tremor Psychiatric: Orientation: alert and oriented x 3 Genitourinary: no CVA tenderness Lymphatic: no lymphadenopathy Results & Data ([facility]) Vital Signs (Past 12 Hours) Vital Signs Temp Pulse Resp BP Pulse Ox 05/08/20 16:24 36.6 C 71 18 146/82 H 95 05/08/20 11:01 36.3 C L 79 16 118/68 92 05/08/20 07:36 36.5 C 73 16 102/63 92 PG Care Time/CCT Total # of Minutes Spent Total Time Spent with Patient: Total time spent is greater than 50% in coord ination of care (as documented) at patient's floor/unit and/or counseling patient: Coding Level of Care Code 55585 Inpt Consult Level 3 Diagnoses Urinary retention due to benign prostatic hyperplasia N40.1; R33.8
[2020-05-08] MEDS: SENNA 8.6 MG TAB PO SCH (20:56)
[2020-05-08] MEDS ORDERED: TAMSULOSIN HCL 0.4 MG CAP PO SCH (21:00)
[2020-05-09] MEDS: ACETAMINOPHEN 325 MG TAB PO SCH (04:22)
[2020-05-09 06:38] LABS: Hematocrit (blood only) 29.5 % (42-52); Hemoglobin 9.9 g/dL (14.0-18.0); Mean Corpuscular Hemoglobin 31.1 pg (25-34); Mean Corpuscular Hgb Conc 33.6 g/dL (32-36); Mean Corpuscular Volume 92.8 fL (80-100); Mean Platelet Volume 11.2 fL (7.4-10.4); Platelet Count 139 K/uL (130-400); RDW Standard Deviation 47.6 fL (36.4-46.3); Red Blood Count 3.18 M/uL (4.7-6.1); White Blood Count 6.61 K/uL (4.8-10.8)
[2020-05-09 07:16] LABS: BUN Creatinine Ratio 23.2 (10-20); Calcium 8.3 mg/dl (8.5-10.1); Est GFR (African American) 86.8; Est GFR (Non-African American) 74.9; Potassium 3.9 mmol/L (3.5-5.1)
--- NOTE | 2020-05-09 07:27 | Urology Progress Note ---
Date of Service May 09, 2020 Assessment & Plan (1) Urinary retention due to benign prostatic hyperplasia: Postop urinary retention after total knee arthroplasty Guido insertion now Home with Guido continue tamsulosin Outpatient follow-up for voiding trial Okay to UT home with a catheter from a urological standpoint Admission and Anticipated Discharge Date Admission Date: May 07, 2020 Subjective Unfortunately, unable to void overnight Required straight cath again around 1 AM Small volume voids from that time until present Denies any current pain Physical Exam Constitutional: well developed and well nourished Respiratory: no respiratory distress Cardiovascular: Extremities: no pedal edema Gastrointestinal (Abdomen): Inspection/Auscultation: abdomen normal to inspection Results & Data ([facility]) Vital Signs (Past 12 Hours) Vital Signs Temp Pulse Resp BP Pulse Ox 05/09/20 06:20 36.3 C L 81 16 147/73 H 91 05/09/20 00:02 36.4 C L 78 16 116/74 92 PG Care Time/CCT Total # of Minutes Spent Total Time Spent with Patient: Total time spent is greater than 50% in coordination of care (as documented) at patient's floor/unit and/or counseling patient: Coding Level of Care Code 13130 Subseq Hosp Care Lvl 2 Diagnoses Urinary retention due to benign prostatic hyperplasia N40.1; R33.8
[2020-05-09] MEDS: LOSARTAN POTASSIUM 50 MG TAB PO SCH (07:34)
[2020-05-09] MEDS: PANTOprazole 40 MG TAB PO SCH (07:34)
[2020-05-09] MEDS: MULTIVITAMIN TAB PO SCH (07:35)
[2020-05-09] MEDS: ASPIRIN 81 MG ECTAB PO SCH (07:35)
[2020-05-09] MEDS: CeleBREX 200 MG CAP PO SCH (07:35)
[2020-05-09] MEDS: allopurinoL 100 MG TAB PO SCH (07:35)
[2020-05-09] MEDS: ATORVASTATIN 40 MG TAB PO SCH (07:35)
[2020-05-09] MEDS: carvediloL 25 MG TAB PO SCH (07:36)
--- NOTE | 2020-05-09 07:36 | Orthopedic Progress Note ---
Date of Service May 09, 2020 Assessment & Plan (1) Osteoarthritis of right knee: Postop day 2 status post right total knee arthroplasty. PT/OT protocols. Weightbearing as tolerated. DVT prophylaxis with aspirin p.o. twice daily, SCDs. Continue current pain regimen. Appeciate medical and urology input- Post op urinary retention- will go home today w Guido and follow up with urology next week. DC planning-patient planning for outpatient PT upon discharge. Admission and Anticipated Discharge Date Admission Date: May 07, 2020 Subjective POD #2 Unfortunately, unable to void overnight Required straight cath again Small volume voids from that time until present Denies SOB, CP, N/V, Dizziness. Did well in PT Knee doing well. Physical Exam Physical Exam: Right knee silverlon c/d/i, no drainage. Toes/ ankle mobile. No calf tenderness. N/V+ A&Ox3. Results & Data ([facility]) Vital Signs (Past 12 Hours) Vital Signs Temp Pulse Resp BP Pulse Ox 05/09/20 06:20 36.3 C L 81 16 147/73 H 91 05/09/20 00:02 36.4 C L 78 16 116/74 92
[2020-05-09] MEDS: DOCUSATE SODIUM 100 MG CAP PO SCH (07:41)
--- NOTE | 2020-05-09 11:28 | Hospitalist Progress Note ---
Date of Service May 09, 2020 Assessment & Plan (1) Acute blood loss anemia: Globin remains stable at 9.9 as of 05/09/2020 (2) Status post total right knee replacement: Post op day# 2 S/P Right TKA by Dr Grayson -pain and wound care management per ortho- discussed dressing change with RN -PT/OT as appropriate -DVT prophylaxis per ortho -incentive spirometry Pre-op Hgb: 15.8. Hgb 11.8 today for a total 4 gm loss -EBL#5ml, significant CECILIA drain output of 1,726 ml to date -Denies lightheadedness, visual changes, CP or SOB. Cautioned about symptoms of orthostasis, monitor BP closely -Fall precautions and orthostatic vitals ordered. Repeat H&H at 1600 this afternoon -Hemoglobin remains stable at 9.9 as of 05/09/2020 Retention of urine Likely secondary to BPH Appreciate urology input and recommendation Status post placement of Guido catheter (3) Hypertension: Stable. Continue carvedilol, losartan with holding parameters (4) Alcohol use: Denies h/o ETOH withdrawal or DT's -Monitor for ETOH withdrawal symptoms -Ativan prn (5) Hyperlipidemia: -Continue atorvastatin (6) Gout: -Continue allopurinol (7) GERD (gastroesophageal reflux disease): -Continue PPI DVT Prophylaxis -SCDs Disposition per primary service Follows with Dr Zhu for routine care Pt was seen and care coordinated with Dr. Rucker. See addendum Thank you for this consultation. We will follow the patient with you during their hospital stay. You can [facility] a [facility] via pager @ [phone]. Medically stable to be discharged Admission and Anticipated Discharge Date Admission Date: May 07, 2020 Subjective 05/09/2020 The patient was seen and examined in medical floor He required Guido catheter since last night and was seen by urologist Denies any pain in the knee joint today but complains today of some discomfort due to Guido Will be going home this afternoon Review of Systems Review of Systems: All systems reviewed and are unremarkable except as noted below Genitourinary: + difficulty urinating (Status post Guido catheter placement) Musculoskeletal: + joint pain (Right knee pain) Physical Exam Physical Exam: General Appearance: WD/WN, vitals as above, sitting up in bedside chair Head: normocephalic, atraumatic Eyes: normal inspection ENT: external ear and nose normal, oropharynx normal Neck: normal visual inspection, trachea midline, no thyromegaly Respiratory: normal respiratory effort, lungs clear to auscultation, no wheeze, rales, rhonchi. No accessory muscle use Cardiovascular: regular rate, rhythm, no murmur, normal peripheral pulses, no BLE edema Abdomen/GI: normal bowel sounds, soft, nontender, no hepatosplenomegaly Extremities/Musculoskeletal: + R knee with surgical dressing and small amount of blood on dressing. No cyanosis or clubbing, extremities motor strength 5/5 Neurologic: PERRL, no dysarthria, CN's II-XI intact bilaterally and moves all extremities Psychiatric: A+Ox3, euthymic affect Skin: no rashes, normal color, warm/dry Results & Data Results & Data ([facility]) Vital Signs (Past 12 Hours) Vital Signs Temp Pulse Resp BP BP Pulse Ox 05/09/20 10:40 36.3 C L 81 16 147/73 H 146/82 H 91 05/09/20 06:20 36.3 C L 81 16 147/73 H 91 05/09/20 00:02 36.4 C L 78 16 116/74 92 Laboratory Results Short CBC 05/08/20 05/09/20 Range/Units 16:09 04:58 WBC 6.61 (4.8-10.8) K/uL Hgb 12.1 L 9.9 L (14.0-18.0) g/dL Hct 36.3 L 29.5 L (42-52) % Plt Count 139 (130-400) K/uL BMP 05/09/20 04:58 Sodium 144 Potassium 3.9 Chloride 114 H Carbon Dioxide 26 BUN 23 H Creatinine 1.00 Glucose 99 Calcium 8.3 L Medications Administered Current Inpatient Medications Acetaminophen (Acetaminophen 325 Mg Tab) 650 mg PO Q8H LILIANA Stop: 05/09/20 12:55 Last Admin: 05/09/20 04:22 Dose: 650 mg Documented by: Allopurinol (Allopurinol 100 Mg Tab) 100 mg PO BID LILIANA Stop: 06/06/20 20:59 Last Admin: 05/09/20 07:35 Dose: 100 mg Documented by: Aspirin (Aspirin 81 Mg Ectab) 81 mg PO BID LILIANA Stop: 06/06/20 20:59 Last Admin: 05/09/20 07:35 Dose: 81 mg Documented by: Atorvastatin Calcium (Atorvastatin 40 Mg Tab) 40 mg PO QAM [facility] Stop: 06/07/20 08:59 Last Admin: 05/09/20 07:35 Dose: 40 mg Documented by: Bisacodyl (Bisacodyl 10 Mg Supp) 10 mg AL DAILY PRN PRN Reason: Constipation Stop: 06/06/20 10:56 Carvedilol (Carvedilol 25 Mg Tab) 25 mg PO BID [facility]ILIANA Stop: 06/06/20 20:59 Last Admin: 05/09/20 07:36 Dose: 25 mg Documented by: Celecoxib (Celebrex 200 Mg Cap) 200 mg PO BID [facility] Stop: 06/06/20 20:59 Last Admin: 05/09/20 07:35 Dose: 200 mg Documented by: Diphenhydramine HCl (Diphenhydramine Hcl 25 Mg Cap) 25 mg PO Q8H PRN PRN Reason: Itching Stop: 06/06/20 10:56 Docusate Sodium (Docusate Sodium 100 Mg Cap) 100 mg PO BID [facility] Stop: 06/06/20 20:59 Last Admin: 05/09/20 07:41 Dose: 100 mg Documented by: Hydromorphone HCl (Hydromorphone Inj 0.5 Mg/0.5 Ml Syr) 0.5 mg IV Q4H PRN PRN Reason: Pain or Pre PT Stop: 05/21/20 10:56 Lorazepam (Ativan) 1 mg in 2 mls @ 2 mls/min IV ONE PRN; Protocol PRN Reason: EtoH Withdrawal AWSS 6-10 Stop: 06/06/20 11:34 Losartan Potassium (Losartan Potassium 50 Mg Tab) 50 mg PO QAM [facility] Stop: 06/07/20 08:59 Last Admin: 05/09/20 07:34 Dose: 50 mg Documented by: Magnesium Hydroxide (Magnesium Hydroxide Susp 30 Ml Udc) 30 ml PO Q6H PRN PRN Reason: Constipation Stop: 06/06/20 10:56 Multivitamins (Multivitamin Tab) 1 tab PO QAM [facility] Stop: 06/07/20 08:59 Last Admin: 05/09/20 07:35 Dose: 1 tab Documented by: Naloxone HCl (Naloxone Hcl 0.4 Mg/1 Ml Vial/Carp) 0.1 mg IV Q5M PRN PRN Reason: Oversedation/Resp Depression Stop: 06/06/20 10:56 Ondansetron HCl (Ondansetron Inj 2 Mg/Ml 2 Ml Vial) 4 mg IV Q6H PRN PRN Reason: Nausea And Vomiting Stop: 06/06/20 10:56 Oxycodone HCl (Oxycodone Hcl Ir 5 Mg Tab (Immediate Release)) 5 - 10 mg PO Q4H PRN PRN Reason: Pain or Pre PT Stop: 05/21/20 10:56 Pantoprazole Sodium (Pantoprazole 40 Mg Tab) 40 mg PO [facility] Stop: 06/07/20 08:59 Last Admin: 05/09/20 07:34 Dose: 40 mg Documented by: Sennosides (Senna 8.6 Mg Tab) 17.2 mg PO [facility] Stop: 06/06/20 20:59 Last Admin: 05/08/20 20:56 Dose: 17.2 mg Documented by: Tamsulosin HCl (Tamsulosin Hcl 0.4 Mg Cap) 0.4 mg PO [facility] Stop: 06/07/20 20:59 Last Admin: 05/08/20 20:56 Dose: 0.4 mg Documented by:
--- NOTE | 2020-05-22 09:26 | Discharge Summary (DS) ---
HISTORY OF PRESENT ILLNESS: This is a 70-year-old male patient of Dr. Grayson's complaining of chronic right knee pain, longstanding, now progressively getting worse. The patient failed conservative treatment and elected to proceed with a right total knee arthroplasty. PAST MEDICAL HISTORY: Hypertension, hypercholesterolemia, osteoarthritis, spinal stenosis and BPH. POSTOPERATIVE COURSE: The patient underwent a right total knee arthroplasty on 05/07/2020. He was followed closely with medical consultation, DVT prophylaxis, physical therapy and pain control. He did have some urinary retention where he needed to be catheterized more than twice. A urologic consultation was obtained. Secondary to his BPH, he was diagnosed with urinary retention and due to the fact numerous catheterization. He was given an indwelling catheter on discharge to go home with. Otherwise, an uneventful postoperative course. PHYSICAL EXAMINATION: On discharge, right knee Silverlon dressing was clean, dry and intact. No redness or drainage, no calf tenderness. Toes and ankle were mobile. Neurologically and neurovascularly he is intact in his right lower extremity. On discharge, his indwelling catheter was placed. DIAGNOSES: Status post right total knee arthroplasty with postoperative urinary retention secondary to benign prostatic hypertrophy. He also has a history of hypertension, hypercholesterolemia, osteoarthritis, and spinal stenosis. PLAN: The patient was discharged home with outpatient physical therapy. He will continue his preadmission medications with the addition of aspirin for DVT prophylaxis with the addition of pain medications and with the addition of tamsulosin per urologic advise. He will follow up with his urologist for discontinuance of the catheter next week as well as an overall follow up with urology. The patient will follow up with Dr. Grayson as scheduled as an outpatient.
== END 2020-05-09 12:16 | disposition home or self-care (01) ==
LOC: ASU 05:01 → 3E 05:01